=== PATIENT | female | born 1965 | race African-American/Black ===

== ENCOUNTER 2018-10-02 10:52 | Emergency (ER) | payer SELFPAY ==
[2018-10-02] MEDS ORDERED: traMADol HCl 50 MG TAB ONE (12:56)
--- NOTE | 2018-10-02 13:26 | ULT ---
Right lower extremity venous Doppler ultrasound 10/02/2018 COMPARISON: None HISTORY: Pain, clinical concern for deep venous thrombosis TECHNIQUE: Multiplanar grayscale sonographic imaging venous structures right lower extremity obtained with color flow and spectral analysis FINDINGS: Right common femoral vein, greater saphenous vein, profunda femoral vein, femoral vein, pop liteal vein, and posterior tibial vein are patent. Normal blood flow, augmentation, and compression within the deep venous system. No evidence for DVT. IMPRESSION: No evidence for deep venous thrombosis of the right lower extremity.
== END 2018-10-02 13:50 | disposition home or self-care (01) ==
LOC: ERS 10:52
DX: M79.89 Other specified soft tissue disorders (principal); F32.9 Major depressive disorder, single episode, unspecified; F17.210 Nicotine dependence, cigarettes, uncomplicated

== ENCOUNTER 2019-04-01 21:13 | Emergency (ER) | payer SELFPAY ==
[2019-04-01] MEDS ORDERED: Dexamethasone 4 mg/ml Vial ONE (22:25)
[2019-04-01] MEDS ORDERED: Diazepam 5 MG TAB ONE (22:26)
[2019-04-01] MEDS ORDERED: Ketorolac Tromethamine 60 MG/2 ML VIAL ONE (22:26)
--- NOTE | 2019-04-01 23:00 | RAD ---
3 views lumbar spine: 04/01/2019 COMPARISON: None HISTORY: Low back pain FINDINGS: Rim calcified structure within the midline pelvis measuring 2.7 cm suggests a calcified emmanuelle rine fibroid. Lumbar pedicles are intact. Lateral imaging demonstrates normal vertebral body height and alignment. No acute osseous abnormality. Mild lower lumbar spine facet hypertrophy present. IMPRESSION: No acute osseous abnormality.
== END 2019-04-01 23:18 | disposition home or self-care (01) ==
LOC: ERS 21:13
DX: M54.41 Lumbago with sciatica, right side (principal); F17.210 Nicotine dependence, cigarettes, uncomplicated
CPT/HCPCS: 72100; 96372; J1100; J1885

== ENCOUNTER 2020-04-17 07:33 | Emergency (ER) | payer SELFPAY ==
[2020-04-17] MEDS ORDERED: Ketorolac Tromethamine 30 MG/ML VIAL ONE (08:09)
== END 2020-04-17 08:34 | disposition home or self-care (01) ==
LOC: ERS 07:33
DX: K08.89 Other specified disorders of teeth and supporting structures (principal); F17.210 Nicotine dependence, cigarettes, uncomplicated
CPT/HCPCS: 99282; J1885